=== PATIENT | female | born 1965 | race Caucasian/White ===

== ENCOUNTER → 2017-08-23 | Outpatient (CLI) | payer OTHER | LOC: M.RAD 08-15 07:00 | DX: Z12.31 Encounter for screening mammogram for malignant neoplasm of breast (principal) ==

== ENCOUNTER → 2018-08-28 | Outpatient (CLI) | payer OTHER | LOC: M.RAD 06:49 | DX: Z12.31 Encounter for screening mammogram for malignant neoplasm of breast (principal) ==

== ENCOUNTER → 2019-04-10 | Outpatient (CLI) | payer OTHER | LOC: M.ULTRA 08:35 | DX: N28.1 Cyst of kidney, acquired (principal); Z88.8 Allergy status to other drugs, medicaments and biological substances ==

== ENCOUNTER → 2019-04-22 | Outpatient (CLI) | payer OTHER | LOC: M.MRI 08:11 | DX: N28.1 Cyst of kidney, acquired (principal) ==

== ENCOUNTER → 2019-09-02 | Outpatient (CLI) | payer OTHER | LOC: M.RAD 07:01 | DX: Z12.31 Encounter for screening mammogram for malignant neoplasm of breast (principal) ==

== ENCOUNTER → 2020-06-15 | Outpatient (CLI) | payer OTHER | LOC: M.ULTRA 16:30 | PROVIDERS: ATTEND Orthopaedic Surgery | DX: S83.231D Complex tear of medial meniscus, current injury, right knee, subsequent encounter (principal); I82.401 Acute embolism and thrombosis of unspecified deep veins of right lower extremity; M71.21 Synovial cyst of popliteal space [Baker], right knee; X58.XXXD Exposure to other specified factors, subsequent encounter ==

== ENCOUNTER → 2020-09-02 | Outpatient (CLI) | payer OTHER | LOC: M.RAD 06:42 | PROVIDERS: ATTEND Family Medicine | DX: Z12.31 Encounter for screening mammogram for malignant neoplasm of breast (principal) ==

== ENCOUNTER → 2020-09-09 | Outpatient (CLI) | payer OTHER | LOC: M.ULTRA 09-07 08:00 | PROVIDERS: ATTEND Family Medicine | DX: N63.10 Unspecified lump in the right breast, unspecified quadrant (principal); N63.20 Unspecified lump in the left breast, unspecified quadrant ==